=== PATIENT | male | born 1945 | race Caucasian/White ===

== ENCOUNTER 2018-12-28 10:32 | Day surgery (SDC) | payer MEDICARE, OTHER ==
[~2018-12-28] VITALS: Ht 177.8 cm; Wt 88.7 kg
[~2018-12-28 10:32] MED LIST: AMLO-150 PO; ASPI-496 PO; ATOR20TA37 PO; GLUC15006 PO; LOSA50TA14 PO; NIAC500T85 PO; SILD20TA2 PO; chondroitin PO
[2018-12-28] MEDS ORDERED: LACTATED RINGERS 1,000 ML IV SCH (11:16)
[2018-12-28] MEDS ORDERED: FENTANYL PF 250 MCG/5ML ONE (12:15)
[2018-12-28] MEDS ORDERED: OXYcodone 5 MG/5 ML ORAL.SOL UDC PO PRN (12:30)
[2018-12-28] MEDS ORDERED: PROMETHAZINE 25 MG SUPP PR PRN (12:30)
[2018-12-28] MEDS ORDERED: LABETALOL 5MG/ML, 20ML IV PRN (12:30)
[2018-12-28] MEDS ORDERED: ONDANSETRON 2MG/ML, 2ML IV PRN (12:30)
[2018-12-28] MEDS ORDERED: hydrALAzine 20 MG/ML, 1ML IV PRN (12:30)
[2018-12-28] MEDS ORDERED: LORazepam 2 MG/ML, 1ML IVPush PRN (12:30)
[2018-12-28] MEDS ORDERED: MEPERIDINE/PF 25MG/ML,1ML IVPush PRN (12:30)
[2018-12-28] MEDS ORDERED: HYDROmorphone 2 MG/ML, 1ML IVPush PRN (12:30)
[2018-12-28] MEDS ORDERED: PROMETHAZINE 25 MG/ML, 1ML IV PRN (12:30)
[2018-12-28] MEDS ORDERED: ONDANSETRON ODT 8 MG PO PRN (12:30)
[2018-12-28] MEDS ORDERED: FENTANYL PF 100 MCG/2ML IV PRN (12:30)
[2018-12-28] MEDS ORDERED: ACETAMINOPHEN 325 MG TABLET PO PRN (12:30)
[2018-12-28] MEDS ORDERED: ONDANSETRON 2MG/ML, 2ML ONE (13:07)
[2018-12-28] MEDS ORDERED: DEXAMETHASONE 4 MG/ML, 1ML ONE (13:07)
[2018-12-28] MEDS ORDERED: CEFAZOLIN 1,000 MG ONE (13:07)
[2018-12-28] MEDS ORDERED: GLYCOPYRROLATE 0.2MG/1ML, 5ML ONE (13:07)
[2018-12-28] MEDS ORDERED: LIDOCAINE-MPF 2% ,5ML ONE (13:07)
[2018-12-28] MEDS ORDERED: PROPOFOL 10 MG/ML, 20ML ONE (13:07)
[2018-12-28] MEDS ORDERED: hydrALAzine 20 MG/ML, 1ML ONE (13:55)
== END 2018-12-28 15:30 | disposition home or self-care (01) ==
LOC: OUT 10:32
PROVIDERS: ATTEND Urology
DX: N35.914 Unspecified anterior urethral stricture, male (principal); I10 Essential (primary) hypertension
CPT/HCPCS: 52281; C1758; C1769; J0360; J0690; J1100; J2405; J2704; J3010; J7120

== ENCOUNTER → 2020-02-07 | Outpatient (CLI) | payer MEDICARE, OTHER ==
[2020-02-07 08:30] LABS: ANION GAP 4 mmol/L (5-15); CALCIUM 9.2 mg/dL (8.5-10.1); CHLORIDE 108 mmol/L (98-107); CREATININE 1.14 mg/dL (0.7-1.3)
[2020-02-07 08:57] LABS: BASOPHILS % (AUTO) 1 % (0-1); EOSINOPHILS % (AUTO) 3 % (1-7); LYMPHOCYTES % (AUTO) 34 % (22-44); MEAN CORPUSCULAR HEMOGLOBIN 32.7 pg (27.5-34.5); MEAN CORPUSCULAR HGB CONC 33.6 g/dL (33.2-36.2); MEAN PLATELET VOLUME 7.5 fL (7.4-10.4); MONOCYTES % (AUTO) 11 % (2-9); NEUTROPHILS % (AUTO) 51 % (42-75); PLATELET COUNT 209 x10^3/uL (130-400); RED BLOOD COUNT 4.83 x10^6/uL (4.38-5.82); RED CELL DISTRIBUTION WIDTH 13.8 % (9.4-14.8)
[2020-02-07 09:06] LABS: MD NO
== END | disposition home or self-care (01) ==
LOC: LAB 08:03
PROVIDERS: ATTEND Internal Medicine Cardiovascular Disease
DX: I10 Essential (primary) hypertension (principal); I48.0 Paroxysmal atrial fibrillation; R00.2 Palpitations
CPT/HCPCS: 36415; 80048; 85025

== ENCOUNTER → 2020-02-09 | Outpatient (CLI) | payer MEDICARE, OTHER | END | disposition home or self-care (01) | LOC: STAR 08:33 | PROVIDERS: ATTEND Internal Medicine Cardiovascular Disease | DX: Z20.828 Contact with and (suspected) exposure to other viral communicable diseases (principal) | CPT/HCPCS: 87635 ==

== ENCOUNTER → 2020-02-09 | Outpatient (CLI) | payer MEDICARE, OTHER ==
[~2020-02-09] MED LIST changes: +OMNIPAQUE 350 MG/ML, 150 ML BOTTLE ONE
== END | disposition home or self-care (01) ==
LOC: CFH 08:30
PROVIDERS: ATTEND Internal Medicine Cardiovascular Disease
DX: I10 Essential (primary) hypertension (principal); I48.0 Paroxysmal atrial fibrillation; R00.2 Palpitations; I25.10 Atherosclerotic heart disease of native coronary artery without angina pectoris
CPT/HCPCS: 71046; 75572; Q9967

== ENCOUNTER 2020-02-13 06:17 | Observation (INO) | payer MEDICARE, OTHER ==
[~2020-02-13] VITALS: Ht 177.8 cm; Wt 97.6 kg
[~2020-02-13 06:17] MED LIST changes: -OMNIPAQUE 350 MG/ML, 150 ML BOTTLE ONE
[2020-02-13] MEDS ORDERED: SODIUM CHLORIDE 0.9% 1,000 ML IV ONE ×2 (06:30)
[2020-02-13] MEDS ORDERED: SODIUM CHLORIDE 0.9% 1,000 ML IV SCH (06:30)
[2020-02-13] MEDS ORDERED: APIX5TAB PO (07:04)
[2020-02-13] MEDS ORDERED: CHOL10003 PO (07:04)
[2020-02-13] MEDS ORDERED: CETI10CA PO (07:04)
[2020-02-13] MEDS ORDERED: IRBE150T49 PO (07:04)
[2020-02-13] MEDS ORDERED: ATOR20TA37 PO (07:04)
[2020-02-13] MEDS ORDERED: ZINC PO (07:04)
[2020-02-13 07:07] VITALS: BP 167/88
[2020-02-13] MEDS ORDERED: FENTANYL PF 100 MCG/2ML ONE ×2 (07:46→13:15)
[2020-02-13] MEDS ORDERED: LIDOCAINE-MPF 2% ,5ML ONE (07:46)
[2020-02-13] MEDS ORDERED: ACETAMINOPHEN 325 MG TABLET PO PRN ×2 (08:00→14:00)
[2020-02-13] MEDS ORDERED: EPHEDRINE 50 MG/ML, 1ML IVPush PRN (08:00)
[2020-02-13] MEDS ORDERED: HYDROmorphone 1 MG/ML, 1ML INJ IVPush PRN (08:00)
[2020-02-13] MEDS ORDERED: ONDANSETRON 2MG/ML, 2ML IVPush PRN (08:00)
[2020-02-13] MEDS ORDERED: LABETALOL 5MG/ML, 20ML IV PRN (08:00)
[2020-02-13] MEDS ORDERED: PROMETHAZINE 25 MG/ML, 1ML IVPush PRN (08:00)
[2020-02-13] MEDS ORDERED: FENTANYL PF 100 MCG/2ML IV PRN (08:00)
[2020-02-13] MEDS ORDERED: OXYcodone 5 MG/5 ML ORAL.SOL UDC PO PRN (08:00)
[2020-02-13] MEDS ORDERED: hydrALAzine 20 MG/ML, 1ML IV PRN (08:00)
[2020-02-13] MEDS ORDERED: LIDOCAINE 1%, 20ML ONE (08:06)
[2020-02-13] MEDS ORDERED: HEPARIN 1,000 UNITS/ML, 10ML ONE ×3 (08:14→09:21)
[2020-02-13] MEDS ORDERED: SUGAMMADEX 200 MG/2 ML IVPush ONE (08:18)
[2020-02-13] MEDS ORDERED: PHENYLEPHRINE 10 MG/ML ONE ×2 (08:22→13:08)
[2020-02-13] MEDS ORDERED: ROCURONIUM 10MG/ML,5ML ONE ×3 (08:22→11:41)
[2020-02-13] MEDS ORDERED: SUCCINYLCHOLINE 20 MG/ML, 10ML ONE (08:22)
[2020-02-13] MEDS ORDERED: PROPOFOL 10 MG/ML, 20ML ONE (08:22)
[2020-02-13] MEDS ORDERED: DEXAMETHASONE 4 MG/ML, 1ML ONE (08:22)
[2020-02-13] MEDS ORDERED: ONDANSETRON 2MG/ML, 2ML ONE (08:22)
[2020-02-13] MEDS ORDERED: GLYCOPYRROLATE 0.2MG/1ML, 5ML ONE (08:51)
[2020-02-13] MEDS ORDERED: ISOPROTERENOL 0.2MG/ML, 5ML ONE (09:30)
[2020-02-13] MEDS ORDERED: APIXABAN 5 MG TABLET ONE (14:10)
[2020-02-13 17:15] VITALS: BP 139/60
[2020-02-13] MEDS: APIXABAN 5 MG TABLET PO SCH (18:36)
[2020-02-13] MEDS: FLECAINIDE 100MG TABLET PO SCH (19:43)
[2020-02-13] MEDS ORDERED: ATORVASTATIN 20 MG TABLET PO SCH ×2 (21:00)
[2020-02-13] MEDS ORDERED: APIXABAN 5 MG TABLET PO SCH (21:00)
[2020-02-13 21:10] VITALS: BP 130/58
[2020-02-13] MEDS: COLCHICINE 0.6 MG CAPSULE PO SCH (21:14)
[2020-02-14 00:54] VITALS: BP 105/65
[2020-02-14 07:15] VITALS: BP 117/72
[2020-02-14 08:07] VITALS: BP 113/73
[2020-02-14] MEDS: COLCHICINE 0.6 MG CAPSULE PO SCH (08:10)
[2020-02-14] MEDS: APIXABAN 5 MG TABLET PO SCH (08:11)
[2020-02-14] MEDS: FLECAINIDE 100MG TABLET PO SCH (08:15)
[2020-02-14] MEDS ORDERED: NIACIN 500 MG TABLET.ER PO SCH (09:00)
[2020-02-14] MEDS ORDERED: CHOLECALCIFEROL 1,000 UNIT TABLET PO SCH (09:00)
[2020-02-14] MEDS ORDERED: AMLODIPINE 5 MG TABLET PO SCH (09:00)
[2020-02-14] MEDS ORDERED: IRBESARTAN 150 MG TABLET PO SCH (09:00)
[2020-02-14] MEDS ORDERED: FLEC100T PO (09:01)
[2020-02-14] MEDS ORDERED: COLC0.6C3 PO (09:01)
[2020-02-14] MEDS ORDERED: APIX5TAB PO (10:37)
== END 2020-02-14 10:20 | disposition home or self-care (01) ==
LOC: CACL 06:17 → ORIP 13:46 → 5SO 17:08 → DCLOUNGE 02-14 10:12
PROVIDERS: ADMIT Internal Medicine Cardiovascular Disease; ATTEND Internal Medicine Cardiovascular Disease
DX: I48.91 Unspecified atrial fibrillation (principal); I48.92 Unspecified atrial flutter; I10 Essential (primary) hypertension; E78.5 Hyperlipidemia, unspecified; K21.9 Gastro-esophageal reflux disease without esophagitis; F10.10 Alcohol abuse, uncomplicated; Z79.899 Other long term (current) drug therapy
CPT/HCPCS: 85347; 93306; 93312; 93321; 93325; 93356; 93613; 93623; 93655; 93656; 93657; 93662; C1730; C1732; C1766; C1893; C1894; G0378; J0330; J1100; J1644; J2370; J2405; J2704; J3010; J3490

== ENCOUNTER 2020-03-06 11:40 | Day surgery (SDC) | payer MEDICARE, OTHER ==
[~2020-03-06] VITALS: Ht 177.8 cm; Wt 88.0 kg
[~2020-03-06 11:40] MED LIST changes: +APIX5TAB PO; +CETI10CA PO; +CHOL10003 PO; +COLC0.6C3 PO; +FLEC100T PO; +IRBE150T49 PO; +ZINC PO
[2020-03-06] MEDS ORDERED: FLEC150T PO (12:33)
[2020-03-06 12:44] VITALS: BP 135/105
[2020-03-06] MEDS ORDERED: PROPOFOL 10 MG/ML, 20ML ONE (12:57)
[2020-03-06 13:13] LABS: BASOPHILS % (AUTO) 1 % (0-1); EOSINOPHILS % (AUTO) 1 % (1-7); LYMPHOCYTES % (AUTO) 24 % (22-44); MEAN CORPUSCULAR HEMOGLOBIN 32.1 pg (27.5-34.5); MEAN CORPUSCULAR HGB CONC 33.9 g/dL (33.2-36.2); MEAN PLATELET VOLUME 7.4 fL (7.4-10.4); MONOCYTES % (AUTO) 8 % (2-9); NEUTROPHILS % (AUTO) 66 % (42-75); PLATELET COUNT 268 x10^3/uL (130-400); RED BLOOD COUNT 4.89 x10^6/uL (4.38-5.82); RED CELL DISTRIBUTION WIDTH 13.7 % (9.4-14.8)
[2020-03-06 13:16] LABS: ALBUMIN 3.8 g/dL (3.4-5.0); ANION GAP 4 mmol/L (5-15); CALCIUM 9.3 mg/dL (8.5-10.1); CHLORIDE 110 mmol/L (98-107); MD NO
[2020-03-06 13:19] LABS: ALANINE AMINOTRANSFERASE 39 U/L (12-78); ALKALINE PHOSPHATASE 82 U/L (45-117); BILIRUBIN,TOTAL 0.7 mg/dL (0.2-1.0); CREATININE 1.17 mg/dL (0.7-1.3); TOTAL PROTEIN 7.6 g/dL (6.4-8.2)
== END 2020-03-06 14:09 | disposition home or self-care (01) ==
LOC: CACL 11:40
PROVIDERS: ATTEND Internal Medicine Cardiovascular Disease
DX: I48.0 Paroxysmal atrial fibrillation (principal); I10 Essential (primary) hypertension; E78.5 Hyperlipidemia, unspecified; M10.9 Gout, unspecified; Z79.01 Long term (current) use of anticoagulants; Z79.899 Other long term (current) drug therapy; Z72.89 Other problems related to lifestyle; Z98.890 Other specified postprocedural states; Z87.891 Personal history of nicotine dependence; Z82.49 Family history of ischemic heart disease and other diseases of the circulatory system; Z82.5 Family history of asthma and other chronic lower respiratory diseases
CPT/HCPCS: 36415; 80053; 85025; 92960; 93005; J2704